=== PATIENT | male | born 1940 | race African-American/Black ===

== ENCOUNTER 2016-04-22 06:00 | Inpatient (IN) ==
[2016-04-22] MEDS ORDERED: *HR* Morphine 2 MG/ML SYRINGE IVP ONE (06:02)
--- NOTE | 2016-04-22 06:07 | Emergency Department Note ---
Disposition Clinical Impression: Abdominal pain Disposition: Still a Patient Referrals: NO,PCP [Primary Care Provider] - Forms: Work/School Release, ED Satisfaction Letter Abdominal Pain HPI - General Chief Complaint: ED Abdominal Pain Stated Complaint: Abd pain Time Seen by Provider: 04/22/16 06:01 Nursing Notes Reviewed: Yes Vital Signs Reviewed: Yes - History of Present Illness HPI Narrative: Mr. Gresham, a 75 old male, presents from [facility] EMS with chief complaint of abdominal pain. Onset 3 hours prior to arrival. Patient states he has not had a bowel movement in some time. Patient describes his abdominal pain as intermittent intense cramping PMH: CAD, CVA Allergies: None Admits: Diffuse abdominal pain, decreased by mouth intake. Denies: Fever, chills, chest pain, palpitations, weakness, numbness, tingling. - Related Data Previous Rx's Medication Instructions Recorded Aspirin [Adult Low Dose Aspirin EC] 81 mg PO DAILY #30 tablet. 05/02/15 Atorvastatin Calcium [Lipitor] 20 mg PO DAILY #30 tablet 05/02/15 Metoprolol [Lopressor] 12.5 mg PO BID #60 tablet 05/02/15 Allergies Allergy/AdvReac Type Severity Reaction Status Date / Time No Known Allergies Allergy Verified 03/31/15 14:32 All systems ED: reviewed and negative except as stated. (As per history of present illness) Abdominal Pain PMH - Past Medical History Medical history: Reports: coronary artery disease, CVA, dementia, glaucoma, hyperlipidemia, hypertension, other Male Surgical History: Reports: other Psychiatric history: Reports: no psych history - Social History Smoking status: Never smoker Alcohol use: Reports: none Drug use: Reports: none Physical Exam General: Patient is alert, oriented, and in no acute distress. Manrique catheter in place. HEENT: No facial asymmetry. Head is normocephalic and atraumatic. Trachea midline. Cardiovascular: Heart regular rate and rhythm without clicks, rubs, gallops, or murmurs. No JVD. PMI nondisplaced. Respiratory: Symmetric chest rise with good respiratory effort. Bilateral breath sounds are clear without wheezing, crackles, or rhonchi. Abdomen: Bowel sounds are high-pitched and normoactive x-4 quadrants. Abdomen is tense, distended, nontender. Psych: Patient's affect is appropriate for situation. Course Course Narrative: We will perform thorough workup including CT abdomen and pelvis with IV and oral contrast. Patient has been signed out to the night team, Dr. Kim and Dr. Taylor. Vital Signs Temperature 0 F L 04/22/16 06:08 Pulse Rate 73 04/22/16 06:08 Respiratory Rate 16 04/22/16 06:08 Blood Pressure 145/81 04/22/16 06:08 O2 Sat by Pulse Oximetry 96 04/22/16 06:08 Temperature 0 F L 04/22/16 06:08 Pulse Rate 73 04/22/16 06:08 Respiratory Rate 16 04/22/16 06:08 Blood Pressure 145/81 04/22/16 06:08 O2 Sat by Pulse Oximetry 96 04/22/16 06:08 Oxygen Delivery Oxygen Delivery Room Air Abdominal Pain - Lab Data Result diagrams: 04/22/16 06:07 04/22/16 06:07 Lab Results 04/22/16 04/22/16 04/22/16 Range/Units 06:07 06:07 06:07 WBC 8.1 (4.3-11.1) K/mcL RBC 4.50 (4.19-5.50) M/mcL Hgb 12.7 L (12.9-16.9) g/dL Hct 38.7 (37.5-50.1) % MCV 86.0 (83.0-100.0) fL MCH 28.2 (28.0-33.3) pg MCHC 32.8 (31.6-35.5) g/dL RDW 13.6 (11.5-14.5) % Plt Count 209 (140-400) K/mcL MPV 9.7 (9.4-12.4) fL Immature Gran % 0.4 (0-4) % Seg Neutrophils % 64.3 % Lymphocytes % 21.8 % Monocytes % 10.3 % Eosinophils % 2.8 % Basophils % 0.4 % Neutrophils # 5.2 (1.6-8.9) K/mcL Lymphocytes # 1.8 (0.6-4.6) K/mcL Monocytes # 0.8 (0.0-1.3) K/mcL Eosinophils # 0.2 (0.0-0.6) K/mcL Basophils # 0.0 (0.0-0.2) K/mcL PT 12.7 H (9.4-12.1) Seconds INR 1.2 APTT 34.5 (26.0-36.0) Seconds Sodium 138 (136-145) mEq/L Potassium 3.7 (3.5-4.5) mEq/L Chloride 105 (98-109) mEq/L Carbon Dioxide 22 (19-29) mEq/L BUN 15 (8-26) mg/dL Creatinine 1.09 (0.72-1.25) mg/dL Est GFR ( Amer) > 60 (> 60) Est GFR (Non-Af Amer) > 60 (> 60) BUN/Creatinine Ratio 14 (6-26) Glucose 101 H (70-99) mg/dL Calculated Osmolality 287 (280-300) Lactic Acid (0.5-2.2) mmol/L Calcium 9.3 (8.6-10.8) mg/dL Total Bilirubin 1.9 H (0.2-1.2) mg/dL Direct Bilirubin 0.6 H (0.0-0.5) mg/dL Indirect Bilirubin 1.3 H (0.0-1.2) mg/dL AST 21 (5-34) Units/L ALT 56 H (0-55) Units/L Alkaline Phosphatase 138 H (38-126) Units/L Serum Total Protein 7.4 (6.0-8.3) g/dL Albumin 3.8 (3.5-5.0) g/dL Globulin 3.6 H (2.4-3.5) g/dL Albumin/Globulin Ratio 1.1 (1.1-2.2) Lipase 16 (8-78) Units/L Urine Color (Yellow) Urine Clarity (Clear) Urine pH (5.0-8.0) pH Units Ur Specific [place] (1.010-1.025) Urine Protein (Neg-Trace) mg/dL Urine Glucose (UA) (Normal) mg/dL Urine Ketones (Negative) mg/dL Urine Blood (Negative) Urine Nitrite (Negative) Urine Bilirubin (Negative) Urine Urobilinogen (Normal) mg/dL Ur Leukocyte Esterase (Negative) Urine Microscopic RBC (0-3) per hpf Urine Microscopic WBC (0-3) per hpf Ur Squamous Epith Cells (None-Few) per lpf Urine Bacteria (None-Few) per hpf Hyaline Casts (None-Few) per lpf Ur Culture Indicated? (NO) Specimen Rejected 04/22/16 04/22/16 04/22/16 Range/Units 06:16 06:23 06:44 WBC (4.3-11.1) K/mcL RBC (4.19-5.50) M/mcL Hgb (12.9-16.9) g/dL Hct (37.5-50.1) % MCV (83.0-100.0) fL MCH (28.0-33.3) pg MCHC (31.6-35.5) g/dL RDW (11.5-14.5) % Plt Count (140-400) K/mcL MPV (9.4-12.4) fL Immature Gran % (0-4) % Seg Neutrophils % % Lymphocytes % % Monocytes % % Eosinophils % % Basophils % % Neutrophils # (1.6-8.9) K/mcL Lymphocytes # (0.6-4.6) K/mcL Monocytes # (0.0-1.3) K/mcL Eosinophils # (0.0-0.6) K/mcL Basophils # (0.0-0.2) K/mcL PT (9.4-12.1) Seconds INR APTT (26.0-36.0) Seconds Sodium (136-145) mEq/L Potassium (3.5-4.5) mEq/L Chloride (98-109) mEq/L Carbon Dioxide (19-29) mEq/L BUN (8-26) mg/dL Creatinine (0.72-1.25) mg/dL Est GFR ( Amer) (> 60) Est GFR (Non-Af Amer) (> 60) BUN/Creatinine Ratio (6-26) Glucose (70-99) mg/dL Calculated Osmolality (280-300) Lactic Acid 0.8 (0.5-2.2) mmol/L Calcium (8.6-10.8) mg/dL Total Bilirubin (0.2-1.2) mg/dL Direct Bilirubin (0.0-0.5) mg/dL Indirect Bilirubin (0.0-1.2) mg/dL AST (5-34) Units/L ALT (0-55) Units/L Alkaline Phosphatase (38-126) Units/L Serum Total Protein (6.0-8.3) g/dL Albumin (3.5-5.0) g/dL Globulin (2.4-3.5) g/dL Albumin/Globulin Ratio (1.1-2.2) Lipase (8-78) Units/L Urine Color Yellow (Yellow) Urine Clarity Clear (Clear) Urine pH 6.0 (5.0-8.0) pH Units Ur Specific [place] 1.011 (1.010-1.025) Urine Protein Negative (Neg-Trace) mg/dL Urine Glucose (UA) Normal (Normal) mg/dL Urine Ketones Negative (Negative) mg/dL Urine Blood Large H (Negative) Urine Nitrite Negative (Negative) Urine Bilirubin Negative (Negative) Urine Urobilinogen Normal (Normal) mg/dL Ur Leukocyte Esterase Moderate H (Negative) Urine Microscopic RBC 5-15 H (0-3) per hpf Urine Microscopic WBC 5-15 H (0-3) per hpf Ur Squamous Epith Cells Moderate H (None-Few) per lpf Urine Bacteria None Seen (None-Few) per hpf Hyaline Casts None Seen (None-Few) per lpf Ur Culture Indicated? YES A (NO) Specimen Rejected Hemolyzed Attestation Statement - Attestation Attestation: I, Giovanni Chou MD, personally performed a history and physical exam of the patient and discussed their management with the resident. I reviewed the resident's note and agree with the documented findings, medical decision making , and plan of care. 75-year-old male, mcfp presents to the emergency department with a complaint of abdominal distention which started several hours prior to arrival. Patient was apparently seen here in the emergency department yesterday for urinary retention and had a Manrique catheter placed. The Manrique is draining normally with clear urine. No nausea or vomiting. No fever. No diarrhea. On examination patient is a well-developed well-nourished elderly male in no acute distress. He is alert and oriented. Sounds are clear and equal bilaterally. Heart regular rate and rhythm. Abdomen is markedly distended and tympanic with obstructed bowel sounds. Moderate diffuse tenderness. Lab work initiated and we will obtain a CT of the abdomen and pelvis with IV and oral contrast as I strongly suspect a bowel obstruction. At shift change the patient will be [facility], Dr. Taylor and Dr. Kim.
[2016-04-22 06:17] LABS: Basophils % 0.4 %; Eosinophils # 0.2 K/mcL (0.0-0.6); Eosinophils % 2.8 %; Hematocrit 38.7 % (37.5-50.1); Hemoglobin 12.7 g/dL (12.9-16.9); Immature Granulocytes % 0.4 % (0-4); Lymphocytes # 1.8 K/mcL (0.6-4.6); Lymphocytes % 21.8 %; Mean Corpuscular HGB Conc 32.8 g/dL (31.6-35.5); Mean Corpuscular Hemoglobin 28.2 pg (28.0-33.3); Mean Platelet Volume 9.7 fL (9.4-12.4); Monocytes # 0.8 K/mcL (0.0-1.3); Monocytes % 10.3 %; Neutrophils # 5.2 K/mcL (1.6-8.9); Platelet Count 209 K/mcL (140-400); Red Cell Distribution Width 13.6 % (11.5-14.5); Segmented Neutrophils % 64.3 %
[2016-04-22 06:22] LABS: INR 1.2; Prothrombin Time 12.7 Seconds (9.4-12.1)
[2016-04-22 06:24] LABS: Activated Partial Thrombo Time 34.5 Seconds (26.0-36.0)
[2016-04-22 06:24] LABS: Bilirubin,Urine Negative (Negative); Blood,Urine Large (Negative); Clarity,Urine Clear (Clear); Color,Urine Yellow (Yellow); Glucose,Urine (UA) Normal (Normal); Ketones,Urine Negative (Negative); Leukocyte Esterase,Urine Moderate (Negative); Nitrite,Urine Negative (Negative); Protein,Urine Negative (Neg-Trace); Specific Gravity,Urine 1.011 (1.010-1.025); Urobilinogen,Urine Normal (Normal)
[2016-04-22 06:25] LABS: Bacteria,Urine None Seen per hpf (None-Few); Hyaline Casts,Urine None Seen per lpf (None-Few); Squamous Epithelial Cell,Urine Moderate per lpf (None-Few)
[2016-04-22 06:34] LABS: Alanine Aminotransferase 56 Units/L (0-55); Albumin 3.8 g/dL (3.5-5.0); Albumin/Globulin Ratio 1.1 (1.1-2.2); Alkaline Phosphatase 138 Units/L (38-126); Aspartate Amino Transferase 21 Units/L (5-34); BUN/Creatinine Ratio 14 (6-26); Bilirubin,Direct 0.6 mg/dL (0.0-0.5); Bilirubin,Indirect 1.3 mg/dL (0.0-1.2); Bilirubin,Total 1.9 mg/dL (0.2-1.2); Blood Urea Nitrogen 15 mg/dL (8-26); Calcium 9.3 mg/dL (8.6-10.8); Carbon Dioxide 22 mEq/L (19-29); Chloride 105 mEq/L (98-109); Globulin 3.6 g/dL (2.4-3.5); Glucose 101 mg/dL (70-99); Lipase 16 Units/L (8-78); Osmolality,Calculated 287 (280-300); Potassium 3.7 mEq/L (3.5-4.5); Sodium 138 mEq/L (136-145); Total Protein 7.4 g/dL (6.0-8.3); eGFR For African Americans > 60 (> 60); eGFR For Non-African Americans > 60 (> 60)
--- NOTE | 2016-04-22 07:21 | Emergency Department Note ---
Disposition Clinical Impression: Ileus Abdominal pain Qualifiers: Abdominal location: generalized Qualified Code(s): R10.84 - Generalized abdominal pain Disposition: Admitted As Inpatient Condition: Fair Referrals: NO,PCP [Primary Care Provider] - Forms: ED Satisfaction Letter, Work/School Release Time of Disposition: 08:20 General Adult HPI - General Chief complaint: ED Abdominal Pain Stated complaint: Abd pain Time Seen by Provider: 04/22/16 06:01 Source: patient Limitations: no limitations - History of Present Illness Pain Scale: 5 - Related Data Previous Rx's Medication Instructions Recorded Aspirin [Adult Low Dose Aspirin EC] 81 mg PO DAILY #30 tablet. 05/02/15 Atorvastatin Calcium [Lipitor] 20 mg PO DAILY #30 tablet 05/02/15 Metoprolol [Lopressor] 12.5 mg PO BID #60 tablet 05/02/15 Allergies Allergy/AdvReac Type Severity Reaction Status Date / Time No Known Allergies Allergy Verified 03/31/15 14:32 Past Medical History - Past Medical History Medical history: Reports: coronary artery disease, CVA, dementia, glaucoma, hyperlipidemia, hypertension, other Surgical history: Reports: other Psychiatric history: Reports: no psych history - Social History Smoking Status: Never smoker Smokeless Tobacco Status: No Alcohol use: Reports: none Drug use: Reports: none Physical Exam - General Limitations: no limitations General appearance: alert, in no apparent distress Course Vital Signs Temperature 0 F L 04/22/16 06:08 Pulse Rate 73 04/22/16 06:08 Respiratory Rate 16 04/22/16 06:08 Blood Pressure 145/81 04/22/16 06:08 O2 Sat by Pulse Oximetry 96 04/22/16 06:08 Temperature 0 F L 04/22/16 06:08 Pulse Rate 73 04/22/16 06:08 Respiratory Rate 16 04/22/16 06:08 Blood Pressure 145/81 04/22/16 06:08 O2 Sat by Pulse Oximetry 96 04/22/16 06:08 Oxygen Delivery Oxygen Delivery Room Air Medical Decision Making - Lab Data Result diagrams: 04/22/16 06:07 04/22/16 06:07 Lab Results 04/22/16 04/22/16 04/22/16 Range/Units 06:07 06:07 06:07 WBC 8.1 (4.3-11.1) K/mcL RBC 4.50 (4.19-5.50) M/mcL Hgb 12.7 L (12.9-16.9) g/dL Hct 38.7 (37.5-50.1) % MCV 86.0 (83.0-100.0) fL MCH 28.2 (28.0-33.3) pg MCHC 32.8 (31.6-35.5) g/dL RDW 13.6 (11.5-14.5) % Plt Count 209 (140-400) K/mcL MPV 9.7 (9.4-12.4) fL Immature Gran % 0.4 (0-4) % Seg Neutrophils % 64.3 % Lymphocytes % 21.8 % Monocytes % 10.3 % Eosinophils % 2.8 % Basophils % 0.4 % Neutrophils # 5.2 (1.6-8.9) K/mcL Lymphocytes # 1.8 (0.6-4.6) K/mcL Monocytes # 0.8 (0.0-1.3) K/mcL Eosinophils # 0.2 (0.0-0.6) K/mcL Basophils # 0.0 (0.0-0.2) K/mcL PT 12.7 H (9.4-12.1) Seconds INR 1.2 APTT 34.5 (26.0-36.0) Seconds Sodium 138 (136-145) mEq/L Potassium 3.7 (3.5-4.5) mEq/L Chloride 105 (98-109) mEq/L Carbon Dioxide 22 (19-29) mEq/L BUN 15 (8-26) mg/dL Creatinine 1.09 (0.72-1.25) mg/dL Est GFR ( Amer) > 60 (> 60) Est GFR (Non-Af Amer) > 60 (> 60) BUN/Creatinine Ratio 14 (6-26) Glucose 101 H (70-99) mg/dL Calculated Osmolality 287 (280-300) Lactic Acid (0.5-2.2) mmol/L Calcium 9.3 (8.6-10.8) mg/dL Total Bilirubin 1.9 H (0.2-1.2) mg/dL Direct Bilirubin 0.6 H (0.0-0.5) mg/dL Indirect Bilirubin 1.3 H (0.0-1.2) mg/dL AST 21 (5-34) Units/L ALT 56 H (0-55) Units/L Alkaline Phosphatase 138 H (38-126) Units/L Serum Total Protein 7.4 (6.0-8.3) g/dL Albumin 3.8 (3.5-5.0) g/dL Globulin 3.6 H (2.4-3.5) g/dL Albumin/Globulin Ratio 1.1 (1.1-2.2) Lipase 16 (8-78) Units/L Urine Color (Yellow) Urine Clarity (Clear) Urine pH (5.0-8.0) pH Units Ur Specific [place] (1.010-1.025) Urine Protein (Neg-Trace) mg/dL Urine Glucose (UA) (Normal) mg/dL Urine Ketones (Negative) mg/dL Urine Blood (Negative) Urine Nitrite (Negative) Urine Bilirubin (Negative) Urine Urobilinogen (Normal) mg/dL Ur Leukocyte Esterase (Negative) Urine Microscopic RBC (0-3) per hpf Urine Microscopic WBC (0-3) per hpf Ur Squamous Epith Cells (None-Few) per lpf Urine Bacteria (None-Few) per hpf Hyaline Casts (None-Few) per lpf Ur Culture Indicated? (NO) Specimen Rejected 04/22/16 04/22/16 04/22/16 Range/Units 06:16 06:23 06:44 WBC (4.3-11.1) K/mcL RBC (4.19-5.50) M/mcL Hgb (12.9-16.9) g/dL Hct (37.5-50.1) % MCV (83.0-100.0) fL MCH (28.0-33.3) pg MCHC (31.6-35.5) g/dL RDW (11.5-14.5) % Plt Count (140-400) K/mcL MPV (9.4-12.4) fL Immature Gran % (0-4) % Seg Neutrophils % % Lymphocytes % % Monocytes % % Eosinophils % % Basophils % % Neutrophils # (1.6-8.9) K/mcL Lymphocytes # (0.6-4.6) K/mcL Monocytes # (0.0-1.3) K/mcL Eosinophils # (0.0-0.6) K/mcL Basophils # (0.0-0.2) K/mcL PT (9.4-12.1) Seconds INR APTT (26.0-36.0) Seconds Sodium (136-145) mEq/L Potassium (3.5-4.5) mEq/L Chloride (98-109) mEq/L Carbon Dioxide (19-29) mEq/L BUN (8-26) mg/dL Creatinine (0.72-1.25) mg/dL Est GFR ( Amer) (> 60) Est GFR (Non-Af Amer) (> 60) BUN/Creatinine Ratio (6-26) Glucose (70-99) mg/dL Calculated Osmolality (280-300) Lactic Acid 0.8 (0.5-2.2) mmol/L Calcium (8.6-10.8) mg/dL Total Bilirubin (0.2-1.2) mg/dL Direct Bilirubin (0.0-0.5) mg/dL Indirect Bilirubin (0.0-1.2) mg/dL AST (5-34) Units/L ALT (0-55) Units/L Alkaline Phosphatase (38-126) Units/L Serum Total Protein (6.0-8.3) g/dL Albumin (3.5-5.0) g/dL Globulin (2.4-3.5) g/dL Albumin/Globulin Ratio (1.1-2.2) Lipase (8-78) Units/L Urine Color Yellow (Yellow) Urine Clarity Clear (Clear) Urine pH 6.0 (5.0-8.0) pH Units Ur Specific [place] 1.011 (1.010-1.025) Urine Protein Negative (Neg-Trace) mg/dL Urine Glucose (UA) Normal (Normal) mg/dL Urine Ketones Negative (Negative) mg/dL Urine Blood Large H (Negative) Urine Nitrite Negative (Negative) Urine Bilirubin Negative (Negative) Urine Urobilinogen Normal (Normal) mg/dL Ur Leukocyte Esterase Moderate H (Negative) Urine Microscopic RBC 5-15 H (0-3) per hpf Urine Microscopic WBC 5-15 H (0-3) per hpf Ur Squamous Epith Cells Moderate H (None-Few) per lpf Urine Bacteria None Seen (None-Few) per hpf Hyaline Casts None Seen (None-Few) per lpf Ur Culture Indicated? YES A (NO) Specimen Rejected Hemolyzed Attestation Statement - Attestation Attestation: Care assumed from Dr. Chou at [address] abdomen and pelvis. The patient presented with abdominal pain and distention. Yesterday he had presented with acute urinary retention. He is resting comfortably at the time of my exam-sleeping. CT pending 08:19: CT results show a distended colon suggestive of ileus. Moderate amount of stool present. No small bowel obstruction. Given his comorbidities, age and abdominal distention, I will request admission to the medicine service. 08:25: Dr. Shannon accepts admission
[2016-04-22] MEDS ORDERED: 0.9 % Sodium Chloride 1,000 ML IVC SCH (08:30)
[2016-04-22] MEDS ORDERED: Naloxone 0.4 MG/ML INJ IVP PRN (09:52)
[2016-04-22] MEDS ORDERED: Bisacodyl 10 MG RECTAL SUPPOSITORY RC STA (09:52)
[2016-04-22] MEDS ORDERED: Ondansetron 4 MG/2 ML VIAL IVP PRN (09:52)
[2016-04-22] MEDS ORDERED: *HR* Morphine 2 MG/ML SYRINGE IVP PRN (09:52)
[2016-04-22] MEDS: Pantoprazole 40 MG VIAL IVP SCH (10:32)
[2016-04-22] MEDS ORDERED: Lidocaine (Urojet) 10 ML JEL.PF.APP TP ONE (12:05)
--- NOTE | 2016-04-22 12:13 | Internal Med History&Physical ---
<Mifflin,Amy Elena - Last Filed: 04/22/16 12:58> Date of Encounter: 04/22/16 Time of Encounter: 10:50 Assessment and Plan (1) Ileus Current visit: Yes Status: Acute CT shows no SBO, dilated, gas-filled colon 5.7cm, may represent ileus. Moderate amt of stool. Abd distended, firm, tympanic sounds with percussion, hyperactive bs x4. Pt is not sure if he has had pain or not due to confusion. NG tube to LIWS NPO Dulcolax suppositories 0.9 NS at 100ml/hr (2) Dementia Current visit: Yes Status: Acute Pt is alert, oriented to name only. Pleasantly confused. He has been placed close to the nurse's station and will be on fall precautions. Qualifiers: Dementia type: unspecified type Dementia behavioral disturbance: without behavioral disturbance Qualified Code(s): F03.90 - Unspecified dementia without behavioral disturbance (3) Acute retention of urine Current visit: No Status: Acute Pt was seen in the ED yesterday for urinary retention. Koroma placed at that time. Will maintain until ileus resolved. (4) CAD (coronary artery disease) Current visit: No Status: Acute Stable. Monitor vs. Qualifiers: Coronary Disease-Associated Artery/Lesion type: pala artery [place] vs. transplanted heart: pala heart Associated angina: without angina Qualified Code(s): I25.10 - Atherosclerotic heart disease of pala coronary artery without angina pectoris (5) CVA (cerebral vascular accident) Current visit: Yes Status: Chronic R sided hemiparesis. Stable. Qualifiers: CVA mechanism: unspecified Qualified Code(s): I63.9 - Cerebral infarction, unspecified Internal Medicine - H&P: HPI Chief complaint: abdominal distension Admitted From: Long-term Nursing Facility Plans for Post Hospital Care: Transfer Detention Care History of present illness: Mr. Gresham is a 75 year old male, pleasantly confused, with history of CAD, dementia, cerebral ventriculomegaly, hyperlipidemia, urinary retention, and blindness L eye. He was sent from [place] to ED for abdominal distension. He was seen in the ER yesterday for urinary retention and has a koroma catheter that is draining clear urine. Pt is unable to tell me when his last bowel movement was and fluctuates between having intermittent pain to having never had pain. CT shows no SBO, but colon is gas filled, dilated to 5.7cm, may represent ileus. Moderate amount of stool. Abd is distended, firm, with hyperactive bowel sounds x 4, tympanic sounds with percussion. Pt denies pain with palpation. NG to LWS, IVF, and Dulcolax suppositories ordered. Past Med Surg Social Fam HX - Past Medical History Medical history: coronary artery disease, CVA, dementia, glaucoma, hyperlipidemia, hypertension, other Psychiatric history: no psych history - Past Surgical History Surgical History: other - Social History Smoking Status: Never smoker Smokeless Tobacco Status: No Alcohol use: none Drug use: none - Family History Mother Hx Family Cardiac Disorders: Yes (mi) Father Adopted: No Family Member Ethnicity: Non- Living Status: Hx Family Cardiac Disorders: Yes Hx Family Respiratory Disorders: No Hx Family Cancer: Yes Hx Family GI Disorders: No Hx Family Endocrine Disorder: No Hx Family Neuromuscular Disorders: Yes Hx Family Neurologic Disorders: No Hx Family HEENT Disorders: Yes Hx Family Autoimmune Disorders: No Internal Medicine - H&P: Meds Aspirin [Adult Low Dose Aspirin EC] 81 mg PO DAILY #30 tablet. 05/02/15 [Rx] Metoprolol [Lopressor] 12.5 mg PO BID #60 tablet 05/02/15 [Rx] Atorvastatin Calcium [Lipitor] 80 mg PO DAILY 04/22/16 [History] Baclofen [Lioresal] 10 mg PO TID PRN 04/22/16 [History] Bethanechol Chloride [Urecholine] 10 mg PO TID 04/22/16 [History] Enoxaparin [Lovenox] 40 mg SQ DAILY 04/22/16 [History] Polyethylene Glycol 3350 [Gavilax] 17 gm PO DAILY 04/22/16 [History] Promethazine [Phenergan] 25 mg PO Q6HR PRN 04/22/16 [History] Sennosides/Docusate Sodium [Senna-S Tablet] 1 tab PO BID 04/22/16 [History] Sodium Chloride/Sodium Bicarb [Nasa Mist Saline [place]] 1 spray NS BID 04/22/16 [ History] Tamsulosin HCl [Flomax] 0.4 mg PO BID 04/22/16 [History] TraZODone 50 mg PO HS 04/22/16 [History] Allergies No Known Allergies Allergy (Verified 03/31/15 14:32) ROS unobtainable: due to mental status All Systems PM: A 10-system review of systems was performed and is negative for pertinent findings except as documented above in the HPI. Pt is pleasantly confused. He is able to state his name, however he believes that he is at home and is unaware of the year despite being told. - Cardiovascular Cardiovascular ROS IM: no chest pain - Respiratory Respiratory: no cough - Gastrointestinal Gastrointestinal: no abdominal pain, no diarrhea, no nausea, no vomiting Additional comments: Pt fluctuates between having intermittent, sharp pain and having never had pain at all. - Genitourinary Additional comments: He is complaining of pain from koroma cath. - Neurological Neurological ROS: no dizziness, no headache(s) - Constitutional Vitals: Temp Pulse Resp BP Pulse Ox 98.8 F 85 17 138/82 95 04/22/16 11:15 04/22/16 11:15 04/22/16 11:15 04/22/16 11:15 04/22/16 11:15 General appearance: Present: cooperative, A&O X 1, pleasant, no acute distress - Eye Eye exam: Present: conjuntiva pink Pupils: Present: fixed Additional comments: L pupil - ENT ENT exam: Present: mucous membranes moist, normal external ear exam - Neck Neck exam general surgery: Absent: lymphadenopathy, tenderness - Respiratory Respiratory exam: Present: decreased breath sounds. Absent: rhonchi, wheezes, tachypnea - Cardiovascular Cardiovascular exam: Present: RRR, +S1, +S2 - GI/Abdominal GI/Abdominal exam: Present: distended, firm, hyperactive bowel sounds. Absent: tenderness - Rectal Rectal exam: Present: deferred - Extremities Exam Extremities exam: Present: normal capillary refill, normal inspection, pedal edema, warm. Absent: cyanotic, joint swelling Additional comments: Pt has +2 non-pitting edema to BLE. R hand and arm contracted and weak crown blocker. - Neurological Exam Neurological exam: Present: alert. Absent: strengths equal and symetr throughout, facial droop, speech deficit Additional comments: Pt is alert to name only. - Expanded Neurological Exam Neurological exam expanded: Present: memory loss-recent event Patient oriented to: Present: person Coma Scale Eye Opening: Spontaneous Coma Scale Motor Response: Obeys Commands Coma Scale Verbal Response: Confused Coma Scale Total: 14 Internal Med - H&P Results - Labs CBC & Chem 7: 04/22/16 06:07 04/22/16 06:07 <Grace Moore E - Last Filed: 04/22/16 18:21> Date of Encounter: 04/22/16 Internal Medicine - H&P: HPI History of present illness: Mr. Gresham is a 75 year old male All Systems PM: A 10-system review of systems was performed and is negative for pertinent findings except as documented above in the HPI. - Constitutional Vitals: Temp Pulse Resp BP Pulse Ox 98.2 F 93 12 177/92 93 L 04/22/16 16:04 04/22/16 16:04 04/22/16 16:04 04/22/16 16:04 04/22/16 16:04 Internal Med - H&P Results - Labs CBC & Chem 7: 04/22/16 06:07 04/22/16 06:07 - Attending Attestation I examined this patient and reviewed laboratory, imaging and all diagnostic data. My medical decision-making was reviewed with KAPIL Alvarado. I agree with the documented findings, disposition and treatment plan as described above. 75 yo M detention resident due to CVA with right hemiparesis, CAD, dementia, cerebral ventriculomegaly, and blindness L eye. Yesterday, he came to our ED because of urinary retention, a koroma was placed in and he was sent back to [facility]. Urine culture was negative. Today, he complaint of abdominal distension. CTAP shows no SBO, dilated colon with gas of 5.7cm, suspicious for ileus and Moderate amount of stool. Exam shows distended abdomen, tympanic sounds with percussion. a/p Ileus: NG to LIWS, IVF, and Dulcolax suppositories ordered. KUB in AM.
[2016-04-22] MEDS ORDERED: Lidocaine Jelly 11 ml Syringe TP ONE (12:15)
[2016-04-22] MEDS: Bisacodyl 10 MG RECTAL SUPPOSITORY RC SCH (16:01)
[2016-04-22] MEDS ORDERED: Acetaminophen IV 1,000 MG/100 ML INFUS..BTL IVPB ONE (21:13)
[2016-04-22] MEDS: traZODone 50 MG TABLET PO SCH (21:50)
[2016-04-23 05:52] LABS: Basophils % 0.3 %; Eosinophils # 0.2 K/mcL (0.0-0.6); Eosinophils % 2.2 %; Hematocrit 37.5 % (37.5-50.1); Hemoglobin 12.4 g/dL (12.9-16.9); Immature Granulocytes % 0.1 % (0-4); Lymphocytes # 1.2 K/mcL (0.6-4.6); Lymphocytes % 16.7 %; Mean Corpuscular HGB Conc 33.1 g/dL (31.6-35.5); Mean Corpuscular Hemoglobin 28.2 pg (28.0-33.3); Mean Corpuscular Volume 85.2 fL (83.0-100.0); Mean Platelet Volume 10.8 fL (9.4-12.4); Monocytes # 0.8 K/mcL (0.0-1.3); Monocytes % 10.7 %; Platelet Count 180 K/mcL (140-400); Red Cell Distribution Width 13.6 % (11.5-14.5)
[2016-04-23 06:10] LABS: Alanine Aminotransferase 58 Units/L (0-55); Albumin 3.6 g/dL (3.5-5.0); Alkaline Phosphatase 133 Units/L (38-126); Aspartate Amino Transferase 26 Units/L (5-34); BUN/Creatinine Ratio 17 (6-26); Bilirubin,Direct 0.8 mg/dL (0.0-0.5); Bilirubin,Indirect 1.6 mg/dL (0.0-1.2); Bilirubin,Total 2.4 mg/dL (0.2-1.2); Blood Urea Nitrogen 16 mg/dL (8-26); Calcium 9.2 mg/dL (8.6-10.8); Carbon Dioxide 22 mEq/L (19-29); Chloride 103 mEq/L (98-109); Globulin 3.6 g/dL (2.4-3.5); Glucose 104 mg/dL (70-99); Magnesium 1.8 mg/dL (1.6-2.6); Osmolality,Calculated 285 (280-300); Potassium 3.8 mEq/L (3.5-4.5); Sodium 137 mEq/L (136-145); Total Protein 7.2 g/dL (6.0-8.3); eGFR For African Americans > 60 (> 60); eGFR For Non-African Americans > 60 (> 60)
[2016-04-23] MEDS ORDERED: Bisacodyl 10 MG RECTAL SUPPOSITORY RC SCH (09:00)
[2016-04-23] MEDS: Pantoprazole 40 MG VIAL IVP SCH (09:58)
[2016-04-23] MEDS: *HR* Enoxaparin 40 MG/0.4 ML SYRINGE SQ SCH (09:59)
[2016-04-23] MEDS: Bisacodyl 10 MG RECTAL SUPPOSITORY RC SCH (09:59)
[2016-04-23] MEDS: Aspirin Enteric Coated 81 MG Tablet PO SCH ×2 (10:00→13:01)
--- NOTE | 2016-04-23 16:09 | Internal Med Progress Note ---
Date of Encounter: 04/23/16 Time of Encounter: 13:00 - Assessment and plan (1) Abdominal pain Current Visit: Yes Status: Acute Qualifiers: Abdominal location: generalized Qualified Code(s): R10.84 - Generalized abdominal pain (2) Ileus Current Visit: Yes Status: Acute (3) Acute retention of urine Current Visit: No Status: Acute Assessment and plan: Plan \Patient had BM , No N/V. low output from NG tube , will start clear liquid diet , Replace electrolytes.Remove koroma, bladder scan in 4 H - Time Spent With Patient 25 - 35 minutes - Subjective Interval history: Patient is anxious, He want to remove koroma 550 output from NG tube over last 24 H , No abdominal pain , No BM - Constitutional Vitals: Temp Pulse Resp BP Pulse Ox 98.3 F 98 16 166/74 97 04/23/16 11:02 04/23/16 11:02 04/23/16 11:02 04/23/16 11:02 04/23/16 11:02 General appearance: Present: cooperative, A&O X 1, pleasant, no acute distress - Neck Neck exam general surgery: Present: supple, trachea midline. Absent: lymphadenopathy - Respiratory Respiratory exam: Present: CTAB. Absent: accessory muscle use, rales, rhonchi, wheezes - Cardiovascular Cardiovascular exam: Present: RRR, +S1, +S2. Absent: diastolic murmur, gallop, rubs, systolic murmur - GI/Abdominal GI/Abdominal exam: Present: hypoactive bowel sounds, soft, tenderness (mild diffuse tenderness), no peritoneal signs. Absent: distended - Extremities Exam Extremities exam: Present: warm, radial pulses palpable and symetrical. Absent : calf tenderness, cyanotic, pedal edema Internal Medicine: Result - Labs CBC & Chem 7: 04/23/16 05:29 04/23/16 05:29 Labs: Short CBC 04/23/16 Range/Units 05:29 WBC 7.2 (4.3-11.1) K/mcL Hgb 12.4 L (12.9-16.9) g/dL Hct 37.5 (37.5-50.1) % Plt Count 180 (140-400) K/mcL Neutrophils # 5.0 (1.6-8.9) K/mcL BMP 04/23/16 05:29 Sodium 137 Potassium 3.8 Chloride 103 Carbon Dioxide 22 BUN 16 Creatinine 0.96 Glucose 104 H Calcium 9.2 Liver Function 04/23/16 Range/Units 05:29 Total Bilirubin 2.4 H (0.2-1.2) mg/dL Direct Bilirubin 0.8 H (0.0-0.5) mg/dL AST 26 (5-34) Units/L ALT 58 H (0-55) Units/L Alkaline Phosphatase 133 H (38-126) Units/L Albumin 3.6 (3.5-5.0) g/dL - ABG Interpretation ABG results: PT/INR, D-dimer PT 12.7 Seconds (9.4-12.1) H 04/22/16 06:07 Consult Discharge Plan - Plan Referrals: Giovanni Sutton MD [Primary Care Provider] -
[2016-04-23] MEDS: Lactobacillus 1 EACH CAP.SPRINK PO SCH (16:53)
[2016-04-23] MEDS: traZODone 50 MG TABLET PO SCH (20:23)
[2016-04-23] MEDS: Sennosides/Docusate Sodium TABLET PO SCH (20:24)
[2016-04-24] MEDS ORDERED: Chloraseptic Spray 177 ML BOTTLE MM PRN (04:15)
[2016-04-24] MEDS: *HR* Enoxaparin 40 MG/0.4 ML SYRINGE SQ SCH (09:24)
[2016-04-24] MEDS: Sennosides/Docusate Sodium TABLET PO SCH ×2 (09:25→20:56)
[2016-04-24] MEDS: Bisacodyl 10 MG RECTAL SUPPOSITORY RC SCH (09:25)
[2016-04-24] MEDS: Aspirin Enteric Coated 81 MG Tablet PO SCH (09:25)
[2016-04-24] MEDS: Lactobacillus 1 EACH CAP.SPRINK PO SCH (09:25)
[2016-04-24] MEDS: Pantoprazole 40 MG VIAL IVP SCH (09:25)
[2016-04-24] MEDS ORDERED: Lactulose Oral Soln 20 GM/30 ML UDC PO ONE (11:51)
--- NOTE | 2016-04-24 18:50 | Internal Med Progress Note ---
Date of Encounter: 04/25/16 Time of Encounter: 18:47 - Assessment and plan (1) Abdominal pain Current Visit: Yes Status: Acute Qualifiers: Abdominal location: generalized Qualified Code(s): R10.84 - Generalized abdominal pain (2) Ileus Current Visit: Yes Status: Acute (3) Acute retention of urine Current Visit: No Status: Acute - Time Spent With Patient advanced diet, KUB reviewed,patient still continued to have Constipation .add another dose of lactulose.monitor bowel movement, remove nasogastric tube, ambulate,possible soft diet at AM. Monitor electrolyte replacement 25 - 35 minutes - Subjective Interval history: patient is feeding better, he denies any nausea vomiting, tolerating clear liquid diet, had bowel movement last night, small bowel movement today, - Constitutional Vitals: Temp Pulse Resp BP Pulse Ox 99.3 F 93 17 130/88 94 L 04/24/16 15:28 04/24/16 15:28 04/24/16 15:28 04/24/16 15:28 04/24/16 15:28 General appearance: Present: cooperative, A&O X 1, pleasant, no acute distress - Head Head exam: Present: atraumatic, normocephalic - Neck Neck exam general surgery: Present: supple, trachea midline. Absent: lymphadenopathy - Respiratory Respiratory exam: Present: decreased breath sounds. Absent: accessory muscle use, rales, rhonchi, wheezes - Cardiovascular Cardiovascular exam: Present: RRR, +S1, +S2. Absent: diastolic murmur, gallop, rubs, systolic murmur - GI/Abdominal GI/Abdominal exam: Present: normal bowel sounds, soft, tenderness (mild diffuse abdominal tenderness, normal bowel sound), no peritoneal signs. Absent: distended - Extremities Exam Extremities exam: Present: warm, radial pulses palpable and symetrical. Absent : calf tenderness, cyanotic, pedal edema Internal Medicine: Result - Labs CBC & Chem 7: 04/25/16 05:05 04/25/16 05:05 - ABG Interpretation ABG results: PT/INR, D-dimer PT 12.7 Seconds (9.4-12.1) H 04/22/16 06:07 - Impressions Impressions KUB X-Ray 04/24/16 09:00 IMPRESSION: 1. Enteric catheter in satisfactory position. 2. Gas and stool throughout the colon may represent mild ileus or constipation. No evidence of bowel obstruction. D/ / Wu Jamison MD / Wu Jamison MD Interpreting Provider: Wu Jamison MD Consult Discharge Plan - Plan Referrals: Giovanni Sutton MD [Primary Care Provider] -
[2016-04-24] MEDS: Lactulose Oral Soln 20 GM/30 ML UDC PO SCH (20:56)
[2016-04-24] MEDS: traZODone 50 MG TABLET PO SCH (20:57)
[2016-04-25 06:26] LABS: Basophils % 0.3 %; Eosinophils # 0.3 K/mcL (0.0-0.6); Eosinophils % 4.6 %; Hematocrit 37.9 % (37.5-50.1); Hemoglobin 12.4 g/dL (12.9-16.9); Immature Granulocytes % 0.9 % (0-4); Immature Platelets 3.3 % (1.1-6.1); Lymphocytes # 1.4 K/mcL (0.6-4.6); Lymphocytes % 21.7 %; Mean Corpuscular HGB Conc 32.7 g/dL (31.6-35.5); Mean Corpuscular Hemoglobin 28.3 pg (28.0-33.3); Mean Corpuscular Volume 86.5 fL (83.0-100.0); Mean Platelet Volume 9.9 fL (9.4-12.4); Monocytes # 0.8 K/mcL (0.0-1.3); Monocytes % 11.6 %; Platelet Count 194 K/mcL (140-400); Red Blood Count 4.38 M/mcL (4.19-5.50); Red Cell Distribution Width 13.7 % (11.5-14.5); Segmented Neutrophils % 60.9 %
[2016-04-25 06:30] LABS: BUN/Creatinine Ratio 15 (6-26); Blood Urea Nitrogen 14 mg/dL (8-26); Carbon Dioxide 23 mEq/L (19-29); Chloride 104 mEq/L (98-109); Glucose 96 mg/dL (70-99); Magnesium 1.7 mg/dL (1.6-2.6); Osmolality,Calculated 288 (280-300); Phosphorous 3.8 mg/dL (2.3-4.7); Potassium 3.8 mEq/L (3.5-4.5); Sodium 139 mEq/L (136-145); eGFR For African Americans > 60 (> 60); eGFR For Non-African Americans > 60 (> 60)
[2016-04-25] MEDS: Pantoprazole 40 MG VIAL IVP SCH (08:12)
[2016-04-25] MEDS: Bisacodyl 10 MG RECTAL SUPPOSITORY RC SCH (11:23)
[2016-04-25] MEDS: Sennosides/Docusate Sodium TABLET PO SCH ×2 (11:23→20:41)
[2016-04-25] MEDS: *HR* Enoxaparin 40 MG/0.4 ML SYRINGE SQ SCH (11:23)
[2016-04-25] MEDS: Aspirin Enteric Coated 81 MG Tablet PO SCH (11:23)
[2016-04-25] MEDS: Lactobacillus 1 EACH CAP.SPRINK PO SCH (11:23)
--- NOTE | 2016-04-25 18:30 | Internal Med Progress Note ---
Date of Encounter: 04/25/16 Time of Encounter: 17:35 - Assessment and plan (1) Abdominal pain Current Visit: Yes Status: Acute Qualifiers: Abdominal location: generalized Qualified Code(s): R10.84 - Generalized abdominal pain (2) Ileus Current Visit: Yes Status: Acute (3) Acute retention of urine Current Visit: No Status: Acute - Time Spent With Patient Discontinue IV fluid, continue soft diet, assist with meals, up to chair, bladder scan to check postvoiding residual, or any recurrence for urinary retention, add Reglan to help with his abdominal distention and constipation. Counseling about ambulation, up to chair and ambulate. 25 - 35 minutes - Subjective Interval history: patient is tolerating his soft diet, continue to have abdominal distention, small bowel movement, had some signs of fluid overload - Constitutional Vitals: Temp Pulse Resp BP Pulse Ox 98.4 F 84 18 131/71 95 04/25/16 15:09 04/25/16 15:09 04/25/16 15:09 04/25/16 15:09 04/25/16 15:09 General appearance: Present: cooperative, A&O X 1, pleasant, no acute distress - Head Head exam: Present: atraumatic, normocephalic - Neck Neck exam general surgery: Present: supple, trachea midline. Absent: lymphadenopathy - Respiratory Respiratory exam: Present: decreased breath sounds, CTAB. Absent: accessory muscle use, rales, rhonchi, wheezes - Cardiovascular Cardiovascular exam: Present: RRR, +S1, +S2. Absent: diastolic murmur, gallop, rubs, systolic murmur - GI/Abdominal GI/Abdominal exam: Present: distended, normal bowel sounds, soft, no peritoneal signs. Absent: tenderness - Extremities Exam Extremities exam: Present: pedal edema (+1 bilateral), warm, radial pulses palpable and symetrical. Absent: calf tenderness, cyanotic - Neurological Exam Neurological exam: Present: CN II-XII intact Internal Medicine: Result - Labs CBC & Chem 7: 04/25/16 05:05 04/25/16 05:05 Labs: Short CBC 04/25/16 Range/Units 05:05 WBC 6.6 (4.3-11.1) K/mcL Hgb 12.4 L (12.9-16.9) g/dL Hct 37.9 (37.5-50.1) % Plt Count 194 (140-400) K/mcL Neutrophils # 4.0 (1.6-8.9) K/mcL BMP 04/25/16 05:05 Sodium 139 Potassium 3.8 Chloride 104 Carbon Dioxide 23 BUN 14 Creatinine 0.96 Glucose 96 Calcium 9.0 - ABG Interpretation ABG results: PT/INR, D-dimer PT 12.7 Seconds (9.4-12.1) H 04/22/16 06:07 Consult Discharge Plan - Plan Referrals: Giovanni Sutton MD [Primary Care Provider] -
[2016-04-25] MEDS: Lactulose Oral Soln 20 GM/30 ML UDC PO SCH (20:41)
[2016-04-25] MEDS: traZODone 50 MG TABLET PO SCH (20:41)
[2016-04-26] MEDS: Sennosides/Docusate Sodium TABLET PO SCH (08:32)
[2016-04-26] MEDS: Pantoprazole 40 MG VIAL IVP SCH (08:32)
[2016-04-26] MEDS: Bisacodyl 10 MG RECTAL SUPPOSITORY RC SCH (08:33)
[2016-04-26] MEDS: Aspirin Enteric Coated 81 MG Tablet PO SCH (08:33)
[2016-04-26] MEDS: Lactobacillus 1 EACH CAP.SPRINK PO SCH (08:33)
[2016-04-26] MEDS: *HR* Enoxaparin 40 MG/0.4 ML SYRINGE SQ SCH (08:33)
[2016-04-26 11:27] VITALS: BP 114/73
[2016-04-26] MEDS ORDERED: Metoclopramide 10 MG/2 ML VIAL IVP ONE (13:02)
--- NOTE | 2016-04-26 13:06 | Discharge Summary ---
Date of Encounter: 04/26/16 Time of Encounter: 13:04 - Discharge Diagnosis (1) Abdominal pain Priority: Primary Status: Acute Qualifiers: Abdominal location: generalized Qualified Code(s): R10.84 - Generalized abdominal pain (2) Ileus Priority: Primary Status: Acute (3) Acute retention of urine Priority: Secondary Status: Acute - Discharge Medications Prescriptions: Bisacodyl [Dulcolax] 10 mg RC DAILY PRN #30 supp.rect PRN Reason: Constipation Cyanocobalamin (B-12) [Vitamin B12] 1,000 mcg PO DAILY #90 tablet Ergocalciferol (VITAMIN D2) [Drisdol (50,000 Unit)] 50,000 unit PO QWEEK #20 capsule Lactobacillus [Culturelle] 2 each PO DAILY #60 cap.sprink Lactulose 20 gm PO HS PRN #120 udc PRN Reason: Constipation Polyethylene Glycol 3350 [MiraLAX] 17 gm PO BID #180 powd.pack Home Medications: Aspirin [Adult Low Dose Aspirin EC] 81 mg PO DAILY #30 tablet.dr 05/02/15 [Rx] Metoprolol [Lopressor] 12.5 mg PO BID #60 tablet 05/02/15 [Rx] Atorvastatin Calcium [Lipitor] 80 mg PO DAILY 04/22/16 [History] Baclofen [Lioresal] 10 mg PO TID PRN 04/22/16 [History] Enoxaparin [Lovenox] 40 mg SQ DAILY 04/22/16 [History] Polyethylene Glycol 3350 [Gavilax] 17 gm PO DAILY 04/22/16 [History] Sennosides/Docusate Sodium [Senna-S Tablet] 1 tab PO BID 04/22/16 [History] Sodium Chloride/Sodium Bicarb [Nasa Mist Saline [place]] 1 spray NS BID 04/22/16 [ History] Tamsulosin HCl [Flomax] 0.4 mg PO BID 04/22/16 [History] TraZODone 50 mg PO HS 04/22/16 [History] Bisacodyl [Dulcolax] 10 mg RC DAILY PRN #30 supp.rect 04/26/16 [Rx] Cyanocobalamin (B-12) [Vitamin B12] 1,000 mcg PO DAILY #90 tablet 04/26/16 [Rx] Ergocalciferol (VITAMIN D2) [Drisdol (50,000 Unit)] 50,000 unit PO QWEEK #20 capsule 04/26/16 [Rx] Lactobacillus [Culturelle] 2 each PO DAILY #60 cap.sprink 04/26/16 [Rx] Lactulose 20 gm PO HS PRN #120 udc 04/26/16 [Rx] Polyethylene Glycol 3350 [MiraLAX] 17 gm PO BID #180 powd.pack 04/26/16 [Rx] Allergies/Adverse Reactions: Allergies No Known Allergies Allergy (Verified 03/31/15 14:32) Date of admission: 04/22/16 16:04 Primary care physician: Giovanni Sutton MD Consults: 04/23/16 09:21 Consult to [facility] [CONS] Routine Reason for SW Consult: possible ECF, dishcarge planning 04/23/16 12:01 Consult to Occupational Therapy [CONS] Routine Comment: Evaluate, develop and implement POC Consult to Physical Therapy [CONS] Routine Comment: Evaluate, develop and implement POC Consult to Surgery [CONS] Routine Consulting Provider: Alberta Metz Reason for Consult: Possible Ileus Call Completed: No Discharging clinician: Alberta Metz - Patient Status Disposition: Transfer SNF Condition: Fair Functional capacity at discharge: uses cane/walker Overall status at discharge: patient is progressing back to baseline - Discharge Instructions Follow Up With: Giovanni Sutton MD [Primary Care Provider] - (Follow-up with surgery in 1-2 weeks) - Diet and Activity Activity: resume usual activities as tolerated Diet: low fat, low cholesterol Hospital course: Mr. Gresham, a 75 old male, [facility] . Patient brought to the emergency room with complaint of severe abdominal pain. with chief complaint of abdominal pain. Onset 3 hours prior to arrival. Patient states he has not had a bowel movement in some time. Patient describes his abdominal pain as intermittent intense cramping.CT shows no SBO, but colon is gas filled, dilated to 5.7cm, may represent ileus. Moderate amount of stool. Abd is distended, firm, with hyperactive bowel sounds x 4, tympanic sounds with percussion. Patient has nasogastric tube with intermittent suction was started patient on laxatives, titrated laxative as tolerated, patient had multiple bowel movement, patient had urinary retention had 40 catheter placed one day prior to admission, patient was started on Flomax and postvoiding residual was improving. Output from nasogastric tube was very low. Diet advanced as tolerated. Patient tolerated all his meals. We will continue to monitor the patient. Different medication was prescribed on discharge for Constipation Add colace Mirlax . Senna 1 tablet bid. Fleet Enema as needed. Patient to be discharged to [facility] today - Time Spent with Patient Total time spent providing and/or coordinating discharge services: Greater than 30 minutes - Constitutional Vitals: Temp Pulse Resp BP Pulse Ox 98.2 F 81 16 114/73 94 L 04/26/16 10:45 04/26/16 10:45 04/26/16 10:45 04/26/16 10:45 04/26/16 10:45 General appearance: Present: cooperative, A&O X 1, pleasant, no acute distress - Head Head exam: Present: atraumatic, normocephalic - Neck Neck exam general surgery: Present: supple, trachea midline. Absent: lymphadenopathy - Respiratory Respiratory exam: Present: CTAB. Absent: accessory muscle use, rales, rhonchi, wheezes - Cardiovascular Cardiovascular exam: Present: RRR, +S1, +S2. Absent: diastolic murmur, gallop, rubs, systolic murmur - GI/Abdominal GI/Abdominal exam: Present: distended, normal bowel sounds, soft, no peritoneal signs. Absent: tenderness - Extremities Exam Extremities exam: Absent: calf tenderness
--- NOTE | 2016-04-26 13:47 | Physician Discharge Referral ---
[facility] Referral Info Provider in Charge after Transfer: PCP Institutional Level of Care: Skilled - Diagnosis (1) Abdominal pain Status: Acute (2) Ileus Priority: Primary Status: Acute (3) Acute retention of urine Priority: Primary Status: Acute - Transfer Medications Prescriptions: Bisacodyl [Dulcolax] 10 mg RC DAILY PRN #30 supp.rect PRN Reason: Constipation Cyanocobalamin (B-12) [Vitamin B12] 1,000 mcg PO DAILY #90 tablet Ergocalciferol (VITAMIN D2) [Drisdol (50,000 Unit)] 50,000 unit PO QWEEK #20 capsule Lactobacillus [Culturelle] 2 each PO DAILY #60 cap.sprink Lactulose 20 gm PO HS PRN #120 udc PRN Reason: Constipation Polyethylene Glycol 3350 [MiraLAX] 17 gm PO BID #180 powd.pack Home Medications: Aspirin [Adult Low Dose Aspirin EC] 81 mg PO DAILY #30 tablet.dr 05/02/15 [Rx] Metoprolol [Lopressor] 12.5 mg PO BID #60 tablet 05/02/15 [Rx] Atorvastatin Calcium [Lipitor] 80 mg PO DAILY 04/22/16 [History] Baclofen [Lioresal] 10 mg PO TID PRN 04/22/16 [History] Enoxaparin [Lovenox] 40 mg SQ DAILY 04/22/16 [History] Polyethylene Glycol 3350 [Gavilax] 17 gm PO DAILY 04/22/16 [History] Sennosides/Docusate Sodium [Senna-S Tablet] 1 tab PO BID 04/22/16 [History] Sodium Chloride/Sodium Bicarb [Nasa Mist Saline [place]] 1 spray NS BID 04/22/16 [ History] Tamsulosin HCl [Flomax] 0.4 mg PO BID 04/22/16 [History] TraZODone 50 mg PO HS 04/22/16 [History] Bisacodyl [Dulcolax] 10 mg RC DAILY PRN #30 supp.rect 04/26/16 [Rx] Cyanocobalamin (B-12) [Vitamin B12] 1,000 mcg PO DAILY #90 tablet 04/26/16 [Rx] Ergocalciferol (VITAMIN D2) [Drisdol (50,000 Unit)] 50,000 unit PO QWEEK #20 capsule 04/26/16 [Rx] Lactobacillus [Culturelle] 2 each PO DAILY #60 cap.sprink 04/26/16 [Rx] Lactulose 20 gm PO HS PRN #120 udc 04/26/16 [Rx] Polyethylene Glycol 3350 [MiraLAX] 17 gm PO BID #180 powd.pack 04/26/16 [Rx] Allergies/Adverse Reactions: Allergies No Known Allergies Allergy (Verified 03/31/15 14:32) - Respiratory Orders Smoking Cessation: Smoking cessation has been advised. For more information, call the [place] Tobacco Quit Line at 0-429-ASAP-NOW. - Mobility Orders Ambulate - Rehabiliation Orders Rehab Orders: Evaluation for Occupational Therapy - Treatments May check for fecal impaction rectally daily PRN, Fleet enema rectally every other day PRN cleansing purposes - Diet Orders Regular CERTIFICATION: I certify that the transfer of the above named patient to an Extended Care Facility is necessary for the continuing treatment of the diagnosis listed. The above information is true and accurate reflection of patient's current condition. Confidential - Redisclosure prohibited without a patient's written consent.
== END 2016-04-26 14:50 | DRG 389 ==
LOC: 3ANU 06:00 → EMEROO 06:00 → 3ANU 08:52
PROVIDERS: ADMIT Internal Medicine; ATTEND Internal Medicine